=== PATIENT | female | born 1975 | race Two or more races ===

== ENCOUNTER 2020-05-15 23:58 | Inpatient (IN) | payer MEDICAID, SELFPAY ==
[~2020-05-15] VITALS: Ht 162.6 cm; Wt 86.3 kg
[2020-05-16] MEDS ORDERED: methylPREDNISolone SOD SUCC 40 MG/ML VL IV ONE (00:15)
[2020-05-16] MEDS ORDERED: methylPREDNISolone SOD SUCC 40 MG/ML VL ONE (00:15)
[2020-05-16] MEDS ORDERED: methylPREDNISolone SOD SUCC 125 MG/2 ML VL IV ONE (00:15)
[2020-05-16] MEDS ORDERED: ACETAMINOPHEN 325 MG TAB PO ONE (00:30)
[2020-05-16] MEDS ORDERED: IPRATROPIUM BROM 0.5 MG/2.5ML INH SOL NEB ONE (00:30)
[2020-05-16] MEDS ORDERED: ALBUTEROL SULF 2.5 MG/0.5ML(0.5%) NEB SOLN NEB ONE (00:30)
[2020-05-16 00:34] VITALS: BP 134/77
[2020-05-16 00:49] LABS: Mean Corpuscular Hemoglobin 21.3 pg (28.0-32.0); Mean Corpuscular Hgb Conc. 30.1 g/dL (32.0-36.0); Monocytes # (auto) 0.6 10 ^3/uL (0-1.3)
[2020-05-16 00:51] LABS: Basophils # (auto) 0.1 10 ^3/uL (0-0.2); Basophils % (auto) 0.6 % (0.0-2.0); Eosinophils # (auto) 0.2 10 ^3/uL (0-0.8); Eosinophils % (auto) 2.5 % (0.0-7.0); Hematocrit 28.9 % (36.0-46.0); Hemoglobin 8.7 g/dL (12.2-16.2); Lymphocytes % (auto) 21.6 % (10.0-50.0); Mean Corpuscular Volume 70.7 fL (80.0-100.0); Monocytes % (auto) 6.3 % (0.0-12.0); Neutrophils # (auto) 6.5 10 ^3/uL (1.6-8.6); Nucleated Red Blood Cells % 0.2 %; Platelet Count (auto) 294 10^3/uL (140-450); Red Blood Cells 4.09 10^6/uL (4.0-5.20); Red Cell Distribution Width 19.5 % (11.8-14.3); White Blood Cell 9.4 10^3/uL (4.4-10.8)
[2020-05-16 01:08] LABS: Calcium 7.6 mg/dL (8.5-10.1); Potassium 3.6 mmol/L (3.5-5.1)
[2020-05-16 01:16] LABS: Bilirubin, Total 0.2 mg/dL (0.2-1.0); Total Protein 7.1 g/dL (6.4-8.2)
[2020-05-16 01:52] VITALS: BP 104/66
[2020-05-16 04:22] VITALS: BP 105/51
[2020-05-16 04:24] VITALS: BP 105/51
[2020-05-16] MEDS ORDERED: ACETAMINOPHEN 500 MG TAB PO PRN (05:45)
[2020-05-16] MEDS ORDERED: ONDANSETRON HCL 4 MG/2 ML VIAL IV PRN (05:45)
[2020-05-16] MEDS ORDERED: MORPHINE SULF INJ 2 MG/ML SYRINGE 1ML IV PRN (05:45)
[2020-05-16] MEDS ORDERED: DEXTROSE (50%) 50ML SYRG IV PRN (05:45)
[2020-05-16] MEDS ORDERED: NITROGLYCERIN 0.4 MG SL TAB SL PRN (05:45)
[2020-05-16] MEDS ORDERED: ALBUTEROL SULF 2.5 MG/0.5ML(0.5%) NEB SOLN NEB PRN (05:45)
[2020-05-16] MEDS ORDERED: ALUM & MAG HYDROX-SIMETH LIQ(MAALOX) 30 ML PO PRN (05:45)
[2020-05-16] MEDS ORDERED: IPRATROPIUM BROM 0.5 MG/2.5ML INH SOL NEB PRN (05:45)
[2020-05-16] MEDS ORDERED: LORazepam 0.5 MG TAB PO PRN (05:45)
[2020-05-16] MEDS ORDERED: HYDROcodone-ACET 5/325MG TAB PO PRN (05:45)
[2020-05-16] MEDS: ACCU-CHEK COMFORT CURVE STRIP VI SCH ×3 (05:59→18:43)
[2020-05-16] MEDS: InsuLIN REG 1unit/0.01ml Soln (100units/ml) SC SCH ×3 (06:00→18:43)
[2020-05-16] MEDS: SODIUM CHLORIDE 0.9% 1,000 ML IV SCH ×2 (06:00→22:12)
[2020-05-16] MEDS: ALBUTEROL SULF HFA 90MCG INH 200DOSE IN SCH ×3 (06:00→22:29)
[2020-05-16 07:18] VITALS: BP 103/68
[2020-05-16] MEDS: methylPREDNISolone SOD SUCC 125 MG/2 ML VL IV SCH (10:28)
[2020-05-16] MEDS: ZINC SULFATE 220mg CAP or TAB PO SCH (10:28)
[2020-05-16] MEDS: ASCORBIC ACID 1,000 MG TAB PO SCH (10:28)
[2020-05-16] MEDS: DOXYCYCLINE 100 MG TAB/CAP PO SCH ×2 (10:29→21:38)
[2020-05-16] MEDS: ENOXAPARIN SOD 40 MG/0.4 ML SYRINGE SC SCH (10:29)
[2020-05-16] MEDS: cefTRIAXone 1GM/50ML D5W 50 ML IV SCH (10:29)
[2020-05-16] MEDS: CHOLECALCIFEROL (VITD3) 1,000UNIT=25mCg TAB PO SCH (10:36)
[2020-05-16] MEDS ORDERED: TIOT17SP IN (10:53)
[2020-05-16 11:14] LABS: Lactic Acid w/Reflex 2.3 mmol/L (0.4-2.0)
[2020-05-16 20:55] VITALS: BP 101/59
[2020-05-16] MEDS: DOCUSATE SOD 100 MG CAP PO PRN (21:53)
[2020-05-17] MEDS: ACCU-CHEK COMFORT CURVE STRIP VI SCH ×3 (00:01→12:03)
[2020-05-17 05:00] VITALS: BP 93/65
[2020-05-17] MEDS ORDERED: PNEUMOCOCCAL VACC POLYS 25 MCG/0.5 ML VIAL IM ONE (06:00)
[2020-05-17] MEDS: InsuLIN REG 1unit/0.01ml Soln (100units/ml) SC SCH ×3 (06:00→12:00)
[2020-05-17 06:15] LABS: Basophils # (auto) 0 10 ^3/uL (0-0.2); Basophils % (auto) 0.2 % (0.0-2.0); Eosinophils # (auto) 0 10 ^3/uL (0-0.8); Hematocrit 27.2 % (36.0-46.0); Hemoglobin 8.1 g/dL (12.2-16.2); Lymphocytes # (auto) 1.3 10 ^3/uL (0.4-5.4); Lymphocytes % (auto) 11.3 % (10.0-50.0); Mean Corpuscular Hemoglobin 20.8 pg (28.0-32.0); Mean Corpuscular Hgb Conc. 29.9 g/dL (32.0-36.0); Mean Corpuscular Volume 69.6 fL (80.0-100.0); Monocytes % (auto) 8.6 % (0.0-12.0); Neutrophils # (auto) 9.4 10 ^3/uL (1.6-8.6); Neutrophils % (auto) 79.9 % (37.0-80.0); Nucleated Red Blood Cells % 0.1 %; Platelet Count (auto) 267 10^3/uL (140-450); Red Blood Cells 3.91 10^6/uL (4.0-5.20); Red Cell Distribution Width 19.5 % (11.8-14.3); White Blood Cell 11.8 10^3/uL (4.4-10.8)
[2020-05-17 06:34] LABS: Potassium 3.7 mmol/L (3.5-5.1)
[2020-05-17 06:41] LABS: Albumin 2.8 g/dL (3.4-5.0); BUN/Creatinine Ratio 17.9; Bilirubin, Total 0.2 mg/dL (0.2-1.0); Calcium 8.3 mg/dL (8.5-10.1); Total Protein 6.9 g/dL (6.4-8.2)
[2020-05-17 09:00] VITALS: BP 120/65
[2020-05-17] MEDS: ZINC SULFATE 220mg CAP or TAB PO SCH (09:28)
[2020-05-17] MEDS: ASCORBIC ACID 1,000 MG TAB PO SCH (09:28)
[2020-05-17] MEDS: cefTRIAXone 1GM/50ML D5W 50 ML IV SCH (09:28)
[2020-05-17] MEDS: ENOXAPARIN SOD 40 MG/0.4 ML SYRINGE SC SCH (09:28)
[2020-05-17] MEDS: DOXYCYCLINE 100 MG TAB/CAP PO SCH (09:28)
[2020-05-17] MEDS: methylPREDNISolone SOD SUCC 125 MG/2 ML VL IV SCH (09:28)
[2020-05-17] MEDS: CHOLECALCIFEROL (VITD3) 1,000UNIT=25mCg TAB PO SCH (09:28)
[2020-05-17] MEDS ORDERED: AZITHROMYCIN 250 MG TAB PO ONE (11:00)
[2020-05-17 13:00] VITALS: BP 134/75
[2020-05-17] MEDS ORDERED: hydrOXYchloroQUINE SULFATE 200 MG TAB PO ONE ×2 (14:30→23:00)
[2020-05-17] MEDS: ALBUTEROL SULF HFA 90MCG INH 200DOSE IN SCH (14:40)
[2020-05-17] MEDS ORDERED: FERROUS SULFATE 325 MG TAB PO ONE (14:45)
[2020-05-17] MEDS: methylPREDNISolone SOD SUCC 40 MG/ML VL IV SCH ×2 (15:53→22:40)
[2020-05-17 17:00] VITALS: BP 111/72
[2020-05-17] MEDS: FERROUS SULFATE 325 MG TAB PO SCH (18:06)
[2020-05-17] MEDS: DOCUSATE SOD 100 MG CAP PO PRN (18:07)
[2020-05-17 22:00] VITALS: BP 108/70
[2020-05-18 05:00] VITALS: BP 105/67
[2020-05-18] MEDS: methylPREDNISolone SOD SUCC 40 MG/ML VL IV SCH ×2 (06:28→15:08)
[2020-05-18 08:00] VITALS: BP 114/71
[2020-05-18] MEDS: FERROUS SULFATE 325 MG TAB PO SCH ×2 (09:01→12:11)
[2020-05-18] MEDS: ASCORBIC ACID 1,000 MG TAB PO SCH (09:02)
[2020-05-18] MEDS: ZINC SULFATE 220mg CAP or TAB PO SCH (09:03)
[2020-05-18] MEDS: CHOLECALCIFEROL (VITD3) 1,000UNIT=25mCg TAB PO SCH (09:03)
[2020-05-18] MEDS: ENOXAPARIN SOD 40 MG/0.4 ML SYRINGE SC SCH (09:04)
[2020-05-18] MEDS: cefTRIAXone 1GM/50ML D5W 50 ML IV SCH (09:05)
[2020-05-18] MEDS ORDERED: hydrOXYchloroQUINE SULFATE 200 MG TAB PO SCH (10:00)
[2020-05-18] MEDS ORDERED: AZITHROMYCIN 250 MG TAB PO SCH ×2 (10:00)
[2020-05-18] MEDS: ALBUTEROL SULF HFA 90MCG INH 200DOSE IN SCH ×2 (11:19→16:03)
[2020-05-18] MEDS ORDERED: CHOL1000 PO (11:49)
[2020-05-18] MEDS ORDERED: LEVO500T21 PO (11:49)
[2020-05-18] MEDS ORDERED: ALBUAER3 IN (11:49)
[2020-05-18] MEDS ORDERED: HYDR200T36 PO (11:49)
[2020-05-18] MEDS ORDERED: FER325T PO (11:49)
[2020-05-18] MEDS ORDERED: PRED20TA2 PO (11:50)
[2020-05-18] MEDS ORDERED: MULTCAP45 PO (11:50)
[2020-05-18 12:00] VITALS: BP 117/79
== END 2020-05-18 16:00 | disposition home or self-care (01) | DRG 720 ==
LOC: ER 05-16 00:02 → TELE 05-16 00:03 → TELE-EAST 05-16 21:00
PROVIDERS: ADMIT Hospitalist; ATTEND Internal Medicine Nephrology
PROC: 5A09357 Assistance with Respiratory Ventilation, Less than 24 Consecutive Hours, Continuous Positive Airway Pressure (ICD-10-PCS; principal; 2020-05-16)
DX: A41.89 Other specified sepsis (principal); J12.89 Other viral pneumonia; U07.1 COVID-19; N39.0 Urinary tract infection, site not specified; J45.902 Unspecified asthma with status asthmaticus; D50.9 Iron deficiency anemia, unspecified; R65.20 Severe sepsis without septic shock; E66.01 Morbid (severe) obesity due to excess calories; Z68.32 Body mass index [BMI] 32.0-32.9, adult
CPT/HCPCS: 36415; 36600; 71045; 80053; 82728; 82805; 82962; 83036; 83605; 83735; 85025; 87040; 87086; 93005; 94640; 94660; G0378; J0696

== ENCOUNTER 2022-02-04 23:15 | Emergency (ER) | payer OTHER ==
[~2022-02-04] VITALS: Ht 160 cm; Wt 81.6 kg
[~2022-02-04 23:15] MED LIST: ALBUAER3 IN; AZIT500T PO; CHOL1TAB30 PO; FER325T PO; HYDR200T36 PO; LEVO500T31 PO; MULTCAP45 PO; NIC21P TOP; PRED20TA2 PO; TIOT17SP IN
[2022-02-05 00:07] LABS: Basophils # (auto) 0.1 10 ^3/uL (0-0.2); Nucleated Red Blood Cells % 0.1 %
[2022-02-05 00:10] LABS: Basophils % (auto) 0.7 % (0.0-2.0); Eosinophils # (auto) 0.4 10 ^3/uL (0-0.8); Eosinophils % (auto) 2.9 % (0.0-7.0); Hematocrit 25.7 % (36.0-46.0); Lymphocytes % (auto) 14.8 % (10.0-50.0); Mean Corpuscular Hemoglobin 16.6 pg (28.0-32.0); Mean Corpuscular Hgb Conc. 27.4 g/dL (32.0-36.0); Mean Corpuscular Volume 60.6 fL (80.0-100.0); Monocytes % (auto) 7.3 % (0.0-12.0); Neutrophils # (auto) 10.1 10 ^3/uL (1.6-8.6); Neutrophils % (auto) 74.3 % (37.0-80.0); Red Blood Cells 4.24 10^6/uL (4.0-5.20); White Blood Cell 13.6 10^3/uL (4.4-10.8)
[2022-02-05 00:11] LABS: Red Cell Distribution Width 21.5 % (11.8-14.3)
[2022-02-05 00:14] LABS: Alanine Aminotransferase 19 U/L (13-56); Albumin 3.4 g/dL (3.4-5.0); Anion Gap 8 (5-15); Aspartate Aminotransferase 15 U/L (15-37); BUN/Creatinine Ratio 14.1; Blood Urea Nitrogen 11 mg/dL (7-18); Calcium 8.4 mg/dL (8.5-10.1); Carbon Dioxide 25 mmol/L (21-32); Chloride 107 mmol/L (98-107); GFR African American 103 mL/min; GFR Non-African American 85 mL/min; Glucose 99 mg/dL (74-106); Potassium 3.8 mmol/L (3.5-5.1); Sodium 140 mmol/L (136-145)
[2022-02-05 00:18] LABS: Alkaline Phosphatase 78 U/L (45-117); Bilirubin, Total 0.2 mg/dL (0.2-1.0); Total Protein 7.3 g/dL (6.4-8.2)
[2022-02-05] MEDS ORDERED: PRED20TA2 PO (02:00)
[2022-02-05] MEDS ORDERED: FERR-20 PO (02:00)
[2022-02-05] MEDS ORDERED: ALBU0.084 NEB (02:00)
[2022-02-05 02:58] VITALS: BP 96/64
== END 2022-02-05 02:54 | disposition home or self-care (01) ==
LOC: ER 23:15
DX: J45.901 Unspecified asthma with (acute) exacerbation (principal); D50.9 Iron deficiency anemia, unspecified
CPT/HCPCS: 36415; 80053; 84484; 84702; 85025; 86850; 86900; 86901; 93005